=== PATIENT | male | born 1965 | race Caucasian/White ===

== ENCOUNTER 2018-02-22 07:42 | Emergency (ER) | payer BC ==
[~2018-02-22] VITALS: Ht 182.8 cm; Wt 108.9 kg
--- NOTE | ~2018-02-22 | EKG ---
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
--- NOTE | ~2018-02-22 | EKG ---
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
[2018-02-22 08:27] LABS: BASO # 0.1 10*3/uL (0.0-0.1); BASO % 0.9 % (0.0-1.0); EOS # 0.2 10*3/uL (0.0-0.4); EOS % 2.1 % (1.0-4.0); HEMATOCRIT 47.1 % (42.0-52.0); HEMOGLOBIN 15.8 g/dl (14.0-18.0); LYMPH # 2.7 10*3/uL (1.3-4.4); MEAN CELL VOLUME 88.9 fl (80.0-94.0); MEAN CORPUSCULAR HGB 29.8 pg (27.0-31.0); MEAN CORPUSCULAR HGB CONC 33.5 g/dl (33.0-37.0); MEAN PLATELET VOLUME 9.4 fl (9.6-12.3); MONO # 0.9 10*3/uL (0.1-1.0); MONO % 10.5 % (3.0-9.0); NEUT # 4.7 10*3/uL (2.3-7.9); NEUT % 54.7 % (47.0-73.0); PLATELET COUNT AUTOMATED 278 10*3/uL (130-400); RED CELL DISTRI WIDTH 13.4 % (0-14.5); WHITE BLOOD COUNT 8.6 10*3/uL (4.8-10.8)
[2018-02-22 08:43] LABS: ALBUMIN 3.5 gm/dl (3.1-4.5); ALKALINE PHOSPHATASE 101 U/L (45-117); BUN 12 mg/dl (7-24); CHLORIDE 110 mmol/L (98-107); CREATININE 0.85 mg/dL (0.70-1.30); POTASSIUM 3.8 mmol/L (3.5-5.1); SGOT/AST 27 IU/L (3-35); SGPT/ALT 41 U/L (12-78); SODIUM 140 mmol/L (136-145); TOTAL PROTEIN 6.8 gm/dL (6.4-8.2)
[2018-02-22 08:52] LABS: TROPONIN I 0.054 ng/ml (<0.045)
== END 2018-02-22 12:57 | disposition home or self-care (01) ==
LOC: ED 07:42
PROVIDERS: Family Medicine
DX: R07.89 Other chest pain (principal)